=== PATIENT | male | born 1940 | race Caucasian/White ===

== ENCOUNTER → 2018-06-14 | Outpatient (CLI) | payer MEDICARE | END | disposition home or self-care (01) | LOC: RAD 08:56 | PROVIDERS: ATTEND Physician Assistant Medical | DX: K22.8 Other specified diseases of esophagus (principal); K22.2 Esophageal obstruction; I10 Essential (primary) hypertension; I25.10 Atherosclerotic heart disease of native coronary artery without angina pectoris; E78.00 Pure hypercholesterolemia, unspecified; F32.9 Major depressive disorder, single episode, unspecified; C61 Malignant neoplasm of prostate | CPT/HCPCS: 74220; 74230 ==

== ENCOUNTER → 2021-03-17 | Outpatient (CLI) | payer MEDICARE | END | disposition home or self-care (01) | LOC: CFH 10:00 | PROVIDERS: ATTEND Nurse Practitioner Family | DX: M16.0 Bilateral primary osteoarthritis of hip (principal); M25.752 Osteophyte, left hip; M25.751 Osteophyte, right hip; M25.851 Other specified joint disorders, right hip | CPT/HCPCS: 73523 ==

== ENCOUNTER 2021-06-06 12:23 | Outpatient (CLI) | payer MEDICARE ==
[2021-06-06] MEDS ORDERED: AMLO5TAB4 PO (12:55)
[2021-06-06] MEDS ORDERED: ROSU10TA2 PO (12:55)
[2021-06-06] MEDS ORDERED: ATEN50TA41 PO (12:55)
[2021-06-06] MEDS ORDERED: CHOL10003 PO (12:55)
[2021-06-06] MEDS ORDERED: ASPI81TA45 PO (12:55)
[2021-06-06] MEDS ORDERED: LISI-170 PO (12:55)
[2021-06-06] MEDS ORDERED: MULT-449 PO (12:55)
[2021-06-06 13:48] LABS: BASOPHILS % (AUTO) 1 % (0-1); EOSINOPHILS % (AUTO) 3 % (1-7); LYMPHOCYTES % (AUTO) 22 % (22-44); MEAN CORPUSCULAR HEMOGLOBIN 33.8 pg (27.5-34.5); MEAN CORPUSCULAR HGB CONC 33.9 g/dL (33.2-36.2); MONOCYTES % (AUTO) 12 % (2-9); NEUTROPHILS % (AUTO) 62 % (42-75); PLATELET COUNT 194 x10^3/uL (130-400); RED BLOOD COUNT 4.11 x10^6/uL (4.38-5.82)
[2021-06-06 13:58] LABS: ALBUMIN 3.8 g/dL (3.4-5.0); ANION GAP 6 mmol/L (5-15); CALCIUM 8.7 mg/dL (8.5-10.1); CHLORIDE 106 mmol/L (98-107)
[2021-06-06 14:06] LABS: ALANINE AMINOTRANSFERASE 20 U/L (12-78); ALKALINE PHOSPHATASE 63 U/L (45-117); BILIRUBIN,TOTAL 0.7 mg/dL (0.2-1.0); CREATININE 1.07 mg/dL (0.7-1.3); TOTAL PROTEIN 7.2 g/dL (6.4-8.2)
== END 2021-06-06 23:59 | disposition home or self-care (01) ==
LOC: STAR 12:23
PROVIDERS: ATTEND Orthopaedic Surgery
DX: Z01.812 Encounter for preprocedural laboratory examination (principal); Z20.822 Contact with and (suspected) exposure to COVID-19; I44.0 Atrioventricular block, first degree; M16.11 Unilateral primary osteoarthritis, right hip
CPT/HCPCS: 36415; 80053; 85025; 87081; 93005; U0003; U0005

== ENCOUNTER 2021-06-13 09:47 | Day surgery (SDC) | payer MEDICARE ==
[~2021-06-13] VITALS: Ht 175.3 cm; Wt 81.6 kg
[~2021-06-13 09:47] MED LIST: ACETAMINOPHEN 650 MG/20.3 ML UDC PO PRN; AMLO5TAB4 PO; AMLODIPINE 5 MG TABLET PO SCH; ASPI81TA45 PO; ATEN50TA41 PO; ATENOLOL 50 MG TABLET PO SCH; BISACODYL 10 MG SUPP PR PRN; CEFAZOLIN PMX 2GM/50ML 50 ML IVPB SCH; CHOL10003 PO; DIPHENHYDRAMINE 25 MG CAPSULE PO PRN; DOCUSATE 100 MG CAPSULE PO SCH; EPINEPHRINE 1 MG/ML, 1ML ONE; FENTANYL PF 250 MCG/5ML ONE; HYDROcodone/APAP 5/325 TABLET PO PRN; KETOROLAC 30 MG/1 ML ONE; LISI-170 PO; MAGNESIUM HYDROXIDE 8%, 30ML UDC PO PRN; MULT-449 PO; NS + 20MEQ KCL 1,000 ML IV SCH; ONDANSETRON 2MG/ML, 2ML IV PRN; ONDANSETRON 4 MG TABLET PO PRN; OXYcodone IR 5MG TABLET PO PRN; ROPIvacaine/PF 0.5%, 30 ML ONE; ROSU10TA2 PO; SENNA/DOCUSATE TABLET PO PRN; TRANEXAMIC ACID 100 MG/ML, 10ML ONE; VANCOMYCIN 1,000 MG ONE; ZOLPIDEM 5MG TABLET PO PRN
[2021-06-13] MEDS ORDERED: FENTANYL PF 100 MCG/2ML ONE (09:59)
[2021-06-13] MEDS ORDERED: CHLORHEXIDINE 15 ML UDC ONE (10:22)
[2021-06-13 10:28] VITALS: BP 192/76
[2021-06-13] MEDS ORDERED: LACTATED RINGERS 1,000 ML IV SCH (10:30)
[2021-06-13] MEDS ORDERED: CHLORHEXIDINE 15 ML UDC PO ONE (10:30)
[2021-06-13] MEDS ORDERED: ACETAMINOPHEN 500 MG TABLET PO ONE (10:30)
[2021-06-13] MEDS ORDERED: GABAPENTIN 300 MG CAPSULE PO ONE (10:30)
[2021-06-13] MEDS ORDERED: DEXAMETHASONE 4 MG/ML, 1ML ONE ×3 (10:38→10:39)
[2021-06-13] MEDS ORDERED: CEFAZOLIN 1,000 MG ONE ×2 (10:39)
[2021-06-13] MEDS ORDERED: ONDANSETRON 2MG/ML, 2ML ONE (10:59)
[2021-06-13] MEDS ORDERED: PROPOFOL 10 MG/ML, 20ML ONE (10:59)
[2021-06-13] MEDS ORDERED: ROCURONIUM 10MG/ML,5ML ONE (10:59)
[2021-06-13] MEDS ORDERED: HYDROmorphone 1 MG/ML, 1ML INJ IVPush PRN (11:30)
[2021-06-13] MEDS ORDERED: FENTANYL PF 100 MCG/2ML IV PRN (11:30)
[2021-06-13] MEDS ORDERED: ONDANSETRON 2MG/ML, 2ML IVPush PRN (11:30)
[2021-06-13] MEDS ORDERED: PROMETHAZINE 25 MG/ML, 1ML IVPush PRN (11:30)
[2021-06-13] MEDS ORDERED: LABETALOL 5MG/ML, 20ML IV PRN (11:30)
[2021-06-13] MEDS ORDERED: ACETAMINOPHEN 325 MG TABLET PO PRN (11:30)
[2021-06-13] MEDS ORDERED: hydrALAzine 20 MG/ML, 1ML IV PRN (11:30)
[2021-06-13] MEDS ORDERED: OXYcodone 5 MG/5 ML ORAL.SOL UDC PO PRN (11:30)
[2021-06-13] MEDS ORDERED: morphine SULFATE 10 MG/ML, 1ML IVPush PRN (11:30)
[2021-06-13] MEDS ORDERED: ASPIRIN 81 MG TABLET EC PO SCH (18:00)
[2021-06-14] MEDS ORDERED: DEXAMETHASONE 4 MG/ML, 1ML IVPush SCH (06:00)
== END 2021-06-13 15:10 | disposition home or self-care (01) ==
LOC: OUT 09:47
PROVIDERS: ATTEND Orthopaedic Surgery
DX: M16.11 Unilateral primary osteoarthritis, right hip (principal); M25.751 Osteophyte, right hip; Z79.899 Other long term (current) drug therapy
CPT/HCPCS: 27130; 73501; 97162; 97165; C1713; C1776; J0171; J0690; J1100; J1885; J2405; J2704; J2795; J3010; J3370; J7120; 76000